=== PATIENT | female | born 2000 | race Hispanic/Latino ===

== ENCOUNTER 2024-11-04 07:17 | Observation (INO) | payer BC ==
--- NOTE | 2024-11-01 11:17 | EKG ---
[facility] Test Date: 2024-11-01 Test Time: 11:52:47 Pat Name: LILIAN MEHTA Department: [facility] Room: Gender: F [employer] Manager: [id number] : 2000 Requested By: MARCELA GONZALEZ Order Number: [id number] Reading MD: Marlyn Young Measurements Intervals [place] Rate: 64 P: 52 WA: 174 QRS: 44 QRSD: 75 T: 21 QT: 389 QTc: 401 Interpretive Statements Sinus arrhythmia No previous ECG available for comparison Electronically Signed On 11-01-2024 18:08:28 VEHICLE UPHOLSTERER by Marlyn Young Please click the below link to view image of tracing.
[2024-11-01 11:26] LABS: BASOPHILS # (AUTO) 0.03 K/uL (0.00-0.20); BASOPHILS % (AUTO) 0.6 % (0.0-5.0); EOSINOPHILS # (AUTO) 0.06 K/uL (0.00-0.70); EOSINOPHILS % (AUTO) 1.2 % (0.0-8.0); HEMATOCRIT 36.2 % (36-48); IMMATURE GRANULOCYTE ABSOLUTE 0.02 K/uL (0-1); LYMPHOCYTES # (AUTO) 1.9 K/uL (1.0-4.8); LYMPHOCYTES % (AUTO) 36.9 % (21.0-51.0); MEAN CORPUSCULAR HEMOGLOBIN 24.7 pg (27.0-33.0); MEAN CORPUSCULAR HGB CONC 30.4 g/dL (32.0-36.0); MEAN CORPUSCULAR VOLUME 81.3 fL (79-99); MONOCYTES # (AUTO) 0.8 K/uL (0.1-1.0); MONOCYTES % (AUTO) 15.5 % (3.0-13.0); NEUTROPHILS # (AUTO) 2.3 K/uL (1.8-7.7); NEUTROPHILS % (AUTO) 45.4 % (40.0-77.0); PLATELET COUNT (AUTO) 308 K/uL (130-400); RED BLOOD CELL COUNT(AUTO) 4.45 MIL/uL (4.00-5.50); RED CELL DISTRIBUTION WIDTH 14.9 % (11.0-15.5)
[2024-11-01 11:39] LABS: INR <= 0.93 (0.85-1.15); PROTHROMBIN TIME 10.3 SEC (9.6-11.6)
[2024-11-01 11:43] LABS: ALBUMIN 3.6 g/dL (3.5-5.0); BILIRUBIN,TOTAL 0.2 mg/dL (0.2-1.0); CREATININE 0.6 mg/dL (0.5-1.0); POTASSIUM 4.2 mmol/L (3.5-5.1); TOTAL PROTEIN, SERUM 7.1 g/dL (6.0-8.3)
[2024-11-01 12:02] VITALS: BP 131/67; PULSE 71; RESP 18; TEMP 98.2
--- NOTE | 2024-11-01 13:04 | NUR ---
report dr li reviewed ekg. ok to proceed
[~2024-11-04] VITALS: Ht 154.9 cm; Wt 72.0 kg
[2024-11-04] VITALS (24 sets, daily range): BP systolic 115–134; BP diastolic 65–80; PULSE 69–88; RESP 12–20; TEMP 97.5–99.5; O2SAT 100
[2024-11-04] MEDS: ceFAZolin SODIUM 2 GM VIAL ONE (08:31)
[2024-11-04] MEDS: LACTATED RINGERS 1000ML 1,000 ML IV ONE (08:31)
[2024-11-04] MEDS ORDERED: BUPIvacaine/PF 0.25% 30ML VIAL IJ ONE (09:09)
[2024-11-04] MEDS: INDOCYANINE GREEN 25 MG VIAL IJ ONE (09:13)
[2024-11-04] MEDS ORDERED: proPOFol 10 MG/ML 20ML VIAL IV ONE (09:57)
[2024-11-04] MEDS ORDERED: SUCCINYLCHOLINE CHLORIDE 20 MG/ML 10 ML VIAL ONE (09:57)
[2024-11-04] MEDS ORDERED: rocuRONium bROMide 10MG/1ML 5ML VL ONE (09:57)
[2024-11-04] MEDS ORDERED: MIDAZOLAM HCL 1 MG/ML 2ML VIAL ONE (09:57)
[2024-11-04] MEDS ORDERED: FENTanyl CITRate PF 50 MCG/1 ML 2ML VIAL ONE (09:58)
[2024-11-04] MEDS: cefTRIAXone 1G VIAL IVPB ONE (10:16)
[2024-11-04] MEDS ORDERED: dexaMETHasone SOD PHOSPHATE 4 MG/ML 1ML VIAL ONE (10:41)
[2024-11-04] MEDS ORDERED: ondanSETRON 4MG INJ ONE (10:42)
[2024-11-04] MEDS ORDERED: GLYCOPYRROLATE 0.2 MG/ML 5 ML VIAL ONE (10:48)
[2024-11-04] MEDS ORDERED: NEOSTIGMINE METHYLSULFATE 1MG/ML IV ONE (10:48)
[2024-11-04] MEDS: acetaMINOPHEN 100 ML ONE (11:03)
[2024-11-04] MEDS ORDERED: PROCHLORPERAZINE 10MG/2ML INJ IV PRN (12:00)
[2024-11-04] MEDS ORDERED: hydroMORPHone 1 MG INJ IVP PRN (12:00)
[2024-11-04] MEDS ORDERED: ondanSETRON 4MG INJ IVP PRN (12:00)
[2024-11-04] MEDS ORDERED: ketOROlac 30MG VIAL (30MG/ML) IV PRN (12:00)
[2024-11-04] MEDS: MEPERIDINE-PF 25 MG/ML SYG ONE (12:20)
--- NOTE | 2024-11-04 12:47 | OP ---
Operative Note: DATE OF PROCEDURE: 11/04/24 SURGEON: MARCELA GONZALEZ MD FORENSIC ANALYST: Baljit Gonzalez MD PA-C ANESTHESIA: General and Local ANESTHESIOLOGIST/HOG MAN: [facility] anesthesia team PREOPERATIVE DIAGNOSIS: Symptomatic cholelithiasis POSTOPERATIVE DIAGNOSIS: As above SYNOPSIS: Impacted stones within the cystic duct caused this to be more complex case requiring the use of a stapler to ligate and divide the cystic duct. PROCEDURE: Laparoscopic cholecystectomy, attempted intraoperative cholangiogram utilizing ICM green spy view technology ESTIMATED BLOOD LOSS: Minimal, less than 15 cc INDICATIONS: As above DESCRIPTION OF PROCEDURE: After standard precautions and preparations were undertaken a Veress needle and optical trocar were used into the abdominal cavity. All other instruments were placed under direct vision. We began by taking the fundus of the gallbladder cephalad and dissecting in the area of the infundibulum. Patient's anatomy appeared to be somewhat altered due to what eventually we realized was impacted stones within the cystic duct. The entirety of the patient's gallbladder appeared to be filled with stones. We had lysed icing green injection and spine technology however the gallbladder itself was not lining up due to the inability to take secondary to being filled with stones. We are able to dissect and achieve a critical view of safety identifying a single vascular structure as well as a single ductal structure entering the infundibulum. We are able to clip and divide the vascular structure with two clips on the staying side however the clip small arms repairer did open wide enough to place clips on the duct. We attempted to dissect closer to the junction with the common bile duct and found that the duct was diffusely dilated and full of debris. Eventually in order to provide a safe amount of length on the cystic duct stump we stopped our dissection and instead using the carpal prior opted for a linear stapler. A vascular load stapler was fired across the duct and the stricture was divided. The duct itself was full of stones and debris. Arrangements were made for ERCP evaluation to follow but with both structures now ligated and divided proceeded with removal of the gallbladder from the gallbladder fossa. Monopolar cautery was used divide attachments. The gallbladder was placed in Endo-Catch bag and removed from the abdominal cavity without incident. The clips and donell were checked one last time before and in the case in were found to be in an appropriate location. There was no sign of bile leakage nor bleeding. Protein in the case all instrument counts were flatus correct include a needles and sponges. The patient tolerated the procedure well. MARCELA GONZALEZ MD Nov 04, 2024 12:47
[2024-11-04] MEDS: LACTATED RINGERS 1000ML 1,000 ML IV SCH (13:49)
[2024-11-04] MEDS: ENOXAPARIN SODIUM 30 MG/0.3 ML SQ SCH (13:52)
[2024-11-04] MEDS: HYDROcod/acetaMINOPHEN 7.5/325 MG 15 ML UDCUP PO PRN (22:08)
[2024-11-05] VITALS (21 sets, daily range): BP systolic 107–120; BP diastolic 53–74; PULSE 61–98; RESP 14–19; TEMP 97.2–98.9
[2024-11-05] MEDS ORDERED: IOHEXOL-350 50ML VIAL IV ONE (06:47)
[2024-11-05] MEDS ORDERED: proPOFol 10 MG/ML 20ML VIAL IV ONE ×2 (07:56→08:03)
[2024-11-05] MEDS ORDERED: rocuRONium bROMide 10MG/1ML 5ML VL ONE ×2 (07:56→08:02)
[2024-11-05] MEDS ORDERED: dexaMETHasone SOD PHOSPHATE 10MG/ML 1ML VIAL ONE (07:57)
[2024-11-05] MEDS ORDERED: LIDOCAINE PF 100MG/5ML (2%) SYRINGE 5ML ONE (07:57)
[2024-11-05] MEDS ORDERED: ondanSETRON 4MG INJ ONE (07:57)
[2024-11-05] MEDS ORDERED: FENTanyl CITRate PF 50 MCG/1 ML 2ML VIAL ONE (08:03)
[2024-11-05] MEDS ORDERED: MIDAZOLAM HCL 1 MG/ML 2ML VIAL ONE (08:03)
[2024-11-05] MEDS ORDERED: NEOSTIGMINE METHYLSULFATE 1MG/ML IV ONE (08:19)
[2024-11-05] MEDS ORDERED: GLYCOPYRROLATE 0.2 MG/ML 5 ML VIAL ONE (08:19)
[2024-11-05] MEDS ORDERED: hydroMORPHone 0.5 MG SYG (0.5MG/0.5ML) IVP PRN (08:30)
--- NOTE | 2024-11-05 09:35 | NUR ---
patient arriving from ERCP procedure, family at bedside. patient aox4, room air, no complaints arouseable to voice, following commands. accompanied by Poncho BERNSTEIN from [facility]. verbalizing patient can start on diet, advance as tolerated, followup with GI in 1 week. will continue to monitor pt.
--- NOTE | 2024-11-05 09:40 | PN ---
GENERAL SURGERY PROGRESS NOTE Date/Time Patient Seen: [9:38am Patient returned from s/p ERCP. AA&O x 3. Family at bedside. Respirations even and unlabored with BBS clear. Abdomen soft and not distended. Active BS present. Incisions D&I pelota maker with dermabond. POc discussed. Encouraged ambulation and I/S exercises. Will begin with clear fluids for lunch. Plan for discharge this afternoon if tolerating diet. The patient and family agreed. ] Problem List: [ cholelythiasis] Interval History: [ ] Current Medications Medications (Trade) Dose Ordered Sig/Tara Route Start Time Stop Time Status Last Admin Dose Admin Enoxaparin Sodium (Lovenox) 30 mg Q12H SQ 11/04/24 12:00 12/04/24 11:59 11/04/24 13:52 30 MG Lactated Ringer's 1,000 ml @ 125 mls/hr Q8H IV 11/04/24 12:00 12/04/24 11:59 11/04/24 20:38 125 MLS/HR Physical Examination: GENERAL: [No acute distress.] HEAD: [Normal with no signs of head trauma.] EYES: [PERRLA, EOMI, conjunctiva and sclera normal.] ENT: [Hearing grossly intact, normal oropharynx.] NECK: [Supple.] LUNGS: [Clear breath sounds bilaterally. No wheezing or Rhonci] HEART: [Normal rate and rhythm. .] VASC: [Peripheral pulses +2 bilaterally.] ABD: [Bowel sounds normal, soft, nontender, no masses, no organomegaly. No audible bruits.Incisions D&I sheyla with dermabond. ] : [Not examined] LYMPH: [No lymphadenopathy noted.] EXT: [No clubbing, cyanosis or edema.] SKIN: [No rashes or lesions noted.] NEURO: [Awake, alert, and oriented x3. No focal sensory or strength deficits noted.] Vital Signs (last 8hr) Date Time Temp Pulse Resp B/P (MAP) Pulse Ox O2 Delivery O2 Flow Rate FiO2 11/05/24 09:20 67 16 110/63 98 Room Air 11/05/24 09:15 66 16 115/61 98 Room Air 11/05/24 09:10 73 15 111/57 97 Room Air 11/05/24 09:05 74 15 115/60 97 Room Air 11/05/24 09:00 78 14 117/60 98 Room Air 11/05/24 08:55 83 15 114/60 97 Room Air 11/05/24 08:50 97.2 98 16 120/69 97 Room Air 11/05/24 04:00 99.0 61 19 119/74 97 Room Air Laboratory: [ ] Impression and Plan: [ Choledocholithiasis s/p ERCP with complete removal. VSS. Plan to advance diet to clears. Possible discharge this afternoon if patient is tolerating diet well. ] ZENIA MAGANA NP Nov 05, 2024 09:40
[2024-11-05] MEDS: INDOMETHACIN 100 MG SUPP.RECT RC ONE (09:41)
--- NOTE | 2024-11-05 10:30 | HMCIMG ---
Fluoroscopic guidance History: CHOLEDOCHOLITHIASIS Fluoroscopic guidance provided. Procedure by ordering physician in operating room suite with fluoroscopic guidance. Several spot images were obtained. Impression: Fluoroscopic guidance.
--- NOTE | 2024-11-05 14:00 | NUR ---
DCP Pt awake, alert, oriented X3 lives with Mother Shannan Goode [phone]. PCP is Dr Gibbs. Pt currently works for [employer]. Able to perform ADLs and anticipates discharge is for home. Addendum: 11/05/24 at 1402 by BECKI PISANO RN Amended: Links added.
--- NOTE | 2024-11-05 15:29 | NUR ---
Pt is independently ambulating in [place] and transferring. No PT needs.
--- NOTE | 2024-11-05 18:07 | DS ---
Discharge Summary Assessment CHOLELITHIASIS Hospital Course Per nurse report,JODI, Patient is tolerating full liquid diet without any n/v. She is ambulating and voiding well. She continues with I/s exercises. Plan for discharge today. Home care and ER warnings given in am. Patient is to continue on full liquid diet until her f/u next week at [facility] with Bariatric team. ZENIA MAGANA NP Nov 05, 2024 18:07
--- NOTE | 2024-11-05 18:47 | NUR ---
discharge instructions given to patient and mother. patient educated regarding lifting restrictions, diet orders for home and recommendations, and incision care. patient and mother verbalizing understanding. all questions addressed. patient off floor via wheelchair.
--- NOTE | 2024-11-05 18:53 | NUR ---
patient wheeled off floor by claim auditor, patient aox4, no complaints. mother at bedside.
== END 2024-11-05 18:55 | disposition home or self-care (01) ==
LOC: DAH 07:17 → INTOOBSV 07:18 → DAHIP 07:18 → 3BH 13:05
PROVIDERS: ADMIT Surgery; ATTEND Surgery
DX: K80.20 Calculus of gallbladder without cholecystitis without obstruction (principal); K80.50 Calculus of bile duct without cholangitis or cholecystitis without obstruction; R74.8 Abnormal levels of other serum enzymes; R93.2 Abnormal findings on diagnostic imaging of liver and biliary tract; Z86.2 Personal history of diseases of the blood and blood-forming organs and certain disorders involving the immune mechanism
CPT/HCPCS: 80053; 84703; 85025; 85610; 85730; 86850; 86900; 86901; 36415; 93005; 47563; 88304; 74300; 96372; 74330; 43262; 43264; A6260; A4663; J7030 ×2; J7120 ×2; J3010 ×2; J0330; J0665 ×2; J3490 ×5; J1650 ×2; J0696; J2250 ×2; J2704 ×2; J2405 ×2; J2710 ×2; J1100 ×2; J2175; J0690; A4649 ×4; C1769 ×4; A4215 ×2; A4223 ×2; A4213; A4222 ×2; A4221; A4216; A4600; G0378 ×3; J2003; Q9967; A4620; A4657 ×3; A4606; C1773; G0379